=== PATIENT | male | born 1960 | race Caucasian/White ===

== ENCOUNTER 2022-07-19 09:17 | Emergency (ER) | payer MEDICAID, SELFPAY ==
--- NOTE | 2022-07-19 09:15 | RT.EKG_ITS ---
APPROVED REPORT Exam: Resting ECG Reason for Exam: chest pain Patient Location: E HR:65 bpm ECG Measurements Heart Rate 65 AXIS HI 161 P 29 QRSd 100 QRS 12 QT 404 T 89 QTc 420 Conclusion Sinus rhythm...normal P axis, V-rate 60- 99
[2022-07-19 09:21] VITALS: BP 170/107; PULSE 66; RESP 16; TEMP 36.1; O2SAT 98
[2022-07-19 09:29] VITALS: RESP 19
--- NOTE | 2022-07-19 09:30 | DI.RAD_ITS ---
Exam(s) XR CHEST 2V PA LATERAL EXAM: XR CHEST 2V PA LATERAL CLINICAL HISTORY: anterior CP, hx of CAD. TECHNIQUE: 2D digital imaging was performed. COMPARISON: No exams were available for comparison FINDINGS: 2 views: Sternotomy wires and evidence of previous CABG noted. Heart size is normal. Mediastinum not widened. Lungs are clear. No infiltrates nor pleural effusions. No pulmonary edema. IMPRESSION: No acute pulmonary findings.Previous sternotomy-CABG. No pulmonary edema. DATA REPOSITORY: RADIATION DOSE DELIVERED:
--- NOTE | 2022-07-19 09:36 | W.ED.GENAD ---
Discharge Plan Disposition Patient Disposition: Home Condition: Improving Discharge Details Clinical Impression: Atypical chest pain Primary Care Provider: None,None ED Provider: Brennen Brambila Discharge Instructions Instructions: Chest Pain (ED) Additional Instructions: Your cardiac work-up today including troponin, EKG, chest x-ray was reassuring and unremarkable. Please monitor your blood pressure as it was high initially. Checking once daily or 3 times a week at the same time will help you trend further changes to blood pressure. Please follow-up with regular doctor for recheck. Continue regular medications. Return to the ER for any acute concerns. Medical Decision Making 62-year-old male with a history of coronary artery disease status post CABG x4 approximately 3 years ago. Presents with weeks of feeling anterior chest tightness that he feels may be due to recent weather change. He has not had a cough, denies significant shortness of breath and his review of systems otherwise unremarkable. He is noted to have mild hypertension at triage, otherwise reassuring initial examination. Screening EKG obtained, patient referred for laboratory and chest x-ray. Laboratories noted a white count 9, hematocrit 51, platelets 324. Chemistries are unremarkable with a negative troponin. Chest x-ray no acute disease. Patient remains without significant complaint. He is reassured. He is appropriate discharge to home. Sign Out No HPI General Mode of arrival: ambulatory. Date/Time Provider Initiated Documentation: 07/19/22 09:23. Limitations to Documentation: no limitations. Information obtained by: patient. History of Present Illness 62 year old M presents to the emergency department with the chief complaint of Anterior chest discomfort for weeks, described as moderate, Quality is described as dull and constant, and is localized to the chest. Patient reports no radiation. Patient started experiencing this week(s) and it has been intermittent. No relieving factors improve symptom(s), No exacerbating factors reported . Patient notes chest pain and shortness of breath; denies cough, syncope and weakness. Patient did receive the following treatments prior to arrival, none Related Data Allergies Allergy/AdvReac Type Severity Reaction Status Date / Time No Known Allergies Allergy Unverified 07/19/22 09:28 General Stated Complaint: Chest Pain ERIC: 2 Review of Systems Narrative: No lower extremity swelling, no weight gain, no significant shortness of breath though he says at times when lifting heavy materials at work. No recent illness. 8 systems were reviewed and otherwise negative [facility] All Active Problems (Updated 07/19/22 @ 11:24 by Brennen Brambila MD) Atypical chest pain (Acute) Social History Smoking/Tobacco Use Status: Never Smoking risk assessment performed?: Yes Alcohol Intake: never Drug use: Never Substance use type: does not use Do you feel safe at home: Yes Do you feel safe in your relationship?: Yes Exam Narrative Exam Narrative: GEN: awake, alert, oriented 3. Pleasant, well groomed, interactive. HEAD: Normocephalic, atraumatic ENT: Mucous membranes moist, oropharynx unremarkable, External ear exam unremarkable EYES: PERRL, EOMI NECK: Full ROM, no NELSON, no menigismus CHEST/RESP: Healed midline sternotomy, mild tenderness to the left of midline, clear to auscultation bilateral, no wheeze/rhonchi/rales CARDIOVASCULAR: RRR, no murmur, rub arslan. 2+ Rad pulse bilateral ABDOMEN: Soft, nontender, no mass. +Bowel sounds EXT: Full ROM, no edema, no rash Neuro: Grossly normal neurologic exam, conversant, interactive. Psych: Speech fluent, thoughts congruent, affect normal Course Vital Signs Vital signs: Vital Signs Temperature 36.1 C L 07/19/22 09:21 Pulse 66 07/19/22 09:21 Respiratory Rate 16 07/19/22 09:21 Blood Pressure 170/107 H 07/19/22 09:21 Pulse Oximetry 98 07/19/22 09:21 Temperature 36.1 C L 07/19/22 09:21 Temperature Source Temporal Artery Scan 07/19/22 09:21 Pulse 66 07/19/22 09:21 Respiratory Rate 19 07/19/22 09:29 Respiratory Effort Non-Labored 07/19/22 09:29 Respiratory Depth Normal 07/19/22 09:29 Respiratory Pattern Normal 07/19/22 09:29 Blood Pressure 170/107 H 07/19/22 09:21 Blood Pressure Position Sitting 07/19/22 09:21 Pulse Oximetry 98 07/19/22 09:21 Oxygen Delivery Method Room Air 07/19/22 09:21 Oxygen Flow Rate 0 07/19/22 09:21 Pain Level 1 07/19/22 09:29
[2022-07-19 10:00] VITALS: PULSE 66; RESP 22; O2SAT 95
[2022-07-19 10:20] LABS: Abs Immature Grans 0.03 10^3/uL (0.0-0.06); Absolute Basophil Count 0.02 10^3/uL (0.0-0.2); Absolute Eosinophil Count 0.14 10^3/uL (0.0-0.7); Absolute Lymphocyte Count 2.29 10^3/uL (1.2-3.4); Absolute Monocyte Count 1.19 10^3/uL (0.1-0.8); Absolute Neutrophil Count 5.64 10^3/uL (1.2-6.7); Basophils % 0.2; Eosinophils % 1.5; HCT 51.5 % (40.0-50.0); Immature Grans % 0.3; Lymphocytes % 24.6; MCH 27.6 pg (27.0-33.0); MCV 84 fL (80-95); MPV 9.1 fL (8.0-11.0); Monocytes % 12.8; Neutrophils % 60.6; Platelet Count 324 10^3/uL (130-400); RBC 6.15 10^6/uL (4.36-5.78); RDW-SD 42.8 fL; WBC 9.31 10^3/uL (4.4-10.8)
[2022-07-19 10:45] LABS: ALT 31 U/L (16-63); AST 20 U/L (15-37); Albumin 3.8 g/dL (3.4-5.0); Alkaline Phosphatase 101 U/L (46-116); Anion Gap 8.6 mmol/L (3-11); BUN 12 mg/dL (7-18); Bilirubin, Total 0.4 mg/dL (0.2-1.0); CO2 27.4 mmol/L (21.0-32.0); Calcium 8.7 mg/dL (8.5-10.1); Chloride 100 mmol/L (98-107); Estimated GFR 86.16 (mL/min/1.73m2); Glucose 114 mg/dL (74-106); Magnesium 2.1 mg/dL (1.8-2.4); Potassium 3.8 mmol/L (3.5-5.1); Sodium 136 mmol/L (136-145); Total Protein 8.4 g/dL (6.4-8.2); Troponin I < 50 ng/L (<or=60)
[2022-07-19 10:54] VITALS: BP 144/83; PULSE 64; PULSE 67; RESP 21; O2SAT 95
[2022-07-19 10:56] LABS: Diff Comment Diff Reviewed; RBC Morphology Normal
--- NOTE | 2022-07-19 10:58 | NUR.NOTE ---
Nursing Note: PT RESTING IN ROOM, ON PHONE, DENIES CURRENT COMPLAINTS, CONTINUE TO MONITOR.
[2022-07-19 11:55] VITALS: BP 152/92; PULSE 68; RESP 18; TEMP 36.9; O2SAT 96
== END 2022-07-19 14:22 | disposition home or self-care (01) ==
PROVIDERS: Emergency Provider Emergency Medicine
DX: R07.89 Other chest pain (principal); I25.10 Atherosclerotic heart disease of native coronary artery without angina pectoris; Z95.1 Presence of aortocoronary bypass graft
CPT/HCPCS: 36415; 80053; 93005; 99284; 71046; 83735; 84484; 85025; 93010; 99285